=== PATIENT | female | born 1990 | race Caucasian/White ===

== ENCOUNTER 2018-08-25 09:17 | Day surgery (SDC) | payer OTHER ==
[~2018-08-25] VITALS: Ht 154.9 cm; Wt 78.8 kg
[2018-08-25] VITALS (15 sets, daily range): BP systolic 111–142; BP diastolic 75–91; PULSE 70–90; RESP 12–20; Ht 154.9 cm; Wt 78.8 kg
[~2018-08-25 09:17] MED LIST: MOTRIN; TRAM50TA2 PO
--- NOTE | 2018-08-25 11:54 | PREAC ---
Date/Time of Note Date/Time of Note DATE: 08/25/18 TIME: 11:53 Anesthesia Eval and Record Evaluation Time Pre-Procedure Interview DATE: 08/25/18 TIME: 11:53 Age 28 Sex female NPO: 8 hrs Preoperative diagnosis Voluntary sterilization Planned procedure BTL Past Medical History Past Medical History: None Surgery & Anesthesia Issues No known issue Meds Anticoagulation: No Beta Dhruv within 24 hr: No Reason Beta Dhruv not given: Pt. not on B-Dhruv Discontinued Reported Medications [Motrin] No Conflict Check 09/11/12 Discontinued Scripts Tramadol HCl (Tramadol HCl) 50 Mg Tab, 50 MG PO Q4 PRN for PAIN, #20 TAB Prov:GLORIA COUCH C 12/12/14 Meds reviewed: Yes Allergies Coded Allergies: No Known Allergy (Verified , 08/25/18) Allergies Reviewed: Yes Labs/Studies Labs Reviewed: Reviewed by anesthesiologist Result Diagram: 08/25/18 1003 Laboratory Tests 08/25/18 10:03 Blood Bank Test 08/25/18 10:03 Antibody Screen NEGATIVE Blood Type O NEGATIVE test: Negative Pre-procedure Exam Last vitals Vital Signs Date Temp Pulse Resp B/P (MAP) Pulse Ox O2 O2 Flow FiO2 Time Delivery Rate 08/25/18 97.5 16 136/90 99 Room Air 10:26 (105) Airway: Adequate mouth opening Mallampati: Mallampati II Teeth: Normal Lung: Normal Heart: Normal ASA Physical Status ASA physical status: 1 Emergency: None Planned Anesthetic General/MAC: ETT Planned Pain Management Parenteral pain med Pre-operative Attestations Prior to commencing anesthesia and surgery, the patient was re-evaluated, there was verification of: *The patient's identity *The results of appropriate recent lab work and preoperative vital signs *The above evaluation not changing prior to induction *Anesthetic plan, risk benefits, alternative and complications discussed with patient/family; questions answered; patient/family understands, accepts and wishes to proceed. VICENTA MICHEL MD Aug 25, 2018 11:54
[2018-08-25] MEDS ORDERED: PROPOFOL 20 ML ONE (12:20)
[2018-08-25] MEDS ORDERED: SUCCINYLCHOLINE CHLORIDE 100 MG/5 ML SYG IV ONE (12:20)
[2018-08-25] MEDS ORDERED: ROCURONIUM 50 MG INJ ONE (12:20)
[2018-08-25] MEDS ORDERED: GLYCOPYRROLATE 0.4 MG INJ ONE ×2 (12:20→13:02)
[2018-08-25] MEDS ORDERED: LIDOCAINE 2% (SDV) 5 ML INJ ONE (12:20)
[2018-08-25] MEDS ORDERED: NEOSTIGMINE 3 MG/3 ML SYRINGE ONE ×2 (12:20→13:02)
[2018-08-25] MEDS ORDERED: MEPERIDINE 100 MG INJ ONE (12:21)
[2018-08-25] MEDS ORDERED: EPHEDrine SULFATE 50 MG/5 ML SYG IV PRN (13:00)
[2018-08-25] MEDS ORDERED: MIDAZOLAM 1 MG/ML 2 ML INJ IV PRN (13:00)
[2018-08-25] MEDS ORDERED: LABETALOL HCL 20MG INJ IV PRN (13:00)
[2018-08-25] MEDS ORDERED: METOCLOPRAMIDE 10 MG INJ IV PRN (13:00)
[2018-08-25] MEDS ORDERED: FENTAnyl 50 MCG/ML VIAL IV PRN ×2 (13:00)
[2018-08-25] MEDS ORDERED: DIPHENHYDRAMINE 50 MG INJ IV PRN (13:00)
[2018-08-25] MEDS ORDERED: MEPERIDINE 25 MG INJ IV PRN (13:00)
[2018-08-25] MEDS ORDERED: hydrALAzine 20 MG INJ IV PRN (13:00)
[2018-08-25] MEDS ORDERED: HYDROmorphONE 1 MG/5 ML IV SYRINGE IV PRN ×3 (13:00)
[2018-08-25] MEDS ORDERED: OXYCODONE/ACETAMINOPHEN (5/325) TAB PO PRN ×2 (13:00)
[2018-08-25] MEDS ORDERED: ONDANSETRON 4 MG INJ IV PRN ×2 (13:00→14:00)
[2018-08-25] MEDS ORDERED: CEFAZOLIN 1 GM INJ ONE (13:02)
[2018-08-25] MEDS ORDERED: ONDANSETRON 4 MG INJ ONE (13:02)
[2018-08-25] MEDS ORDERED: METOCLOPRAMIDE 10 MG INJ ONE (13:02)
[2018-08-25] MEDS ORDERED: BUPIVACAINE 0.5%/EPI (SDV) 30 ML INJ ONE (13:23)
--- NOTE | 2018-08-25 13:43 | SIPON ---
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
[2018-08-25] MEDS ORDERED: NALOXONE (0.4 MG/ML) INJ ONE (13:50)
[2018-08-25] MEDS ORDERED: KETOROLAC 30 MG INJ IV PRN (14:00)
[2018-08-25] MEDS ORDERED: HYDROCODONE/APAP (5/325) TAB PO PRN ×2 (14:00)
[2018-08-25] MEDS ORDERED: morphine 2 MG INJ IV PRN (14:00)
[2018-08-25] MEDS: FENTAnyl 50 MCG/ML VIAL IV PRN ×2 (14:17→14:29)
--- NOTE | 2018-08-25 14:59 | PAC ---
Date/Time of Note Date/Time of Note DATE: 08/25/18 TIME: 14:59 Post-Anesthesia Notes Post-Anesthesia Note Last documented vital signs Vital Signs Date Temp Pulse Resp B/P (MAP) Pulse Ox O2 O2 Flow FiO2 Time Delivery Rate 08/25/18 74 14 127/82 94 Room Air 14:30 (97) 08/25/18 98.8 14:06 08/25/18 8.0 14:05 Activity: WNL Respiratory function: WNL Cardiovascular function: WNL Mental status: Baseline Pain reasonably controlled: Yes Hydration appropriate: Yes Nausea/Vomiting absent: Yes Comments BT: 98.7 VICENTA MICHEL MD Aug 25, 2018 14:59
--- NOTE | 2018-08-25 15:05 | PREOPHP ---
DATE OF ADMISSION: 08/25/2018 HISTORY OF PRESENT ILLNESS: A 28-year-old female 3, para 2, AB 1, last menstrual period of 0 08/20/2018 is admitted for voluntary sterilization. PAST MEDICAL HISTORY: Unremarkable. PAST SURGICAL HISTORY: Cholecystectomy and abdominoplasty. ALLERGIES: NO KNOWN ALLERGIES. FAMILY HISTORY: Hypertension and diabetes. PHYSICAL EXAMINATION: VITAL SIGNS: The patient is afebrile. Vital signs are stable. HEAD, NECK AND CHEST: Within normal limits. ABDOMEN: Soft, nontender, nondistended. PELVIC: Normal. EXTREMITIES: Within normal limits. NEUROLOGIC: Within normal limits. IMPRESSION: Voluntary sterilization. PLAN: Minilaparotomy, bilateral tubal ligation. Risks, benefits and alternatives of procedure were explained to patient. The patient has been counseled about all of her contraceptive options includin g all methods of sterilization. It was explained to patient that with bilateral tubal ligation, ther e is a chance of failure resulting in ectopic and/or . After counseling, the ochoa ent said she understood and gave informed consent for the procedures. Dictated By: RENETTA RIOJAS/RUDY Conf#: [id number] DID#: [id number]
--- NOTE | 2018-08-25 16:34 | OPR ---
DATE OF OPERATION: 08/25/2018 PREOPERATIVE DIAGNOSIS: Voluntary sterilization. POSTOPERATIVE DIAGNOSIS: Voluntary sterilization. OPERATION PERFORMED: Minilaparotomy, bilateral tubal ligation. SURGEON: Renetta Lizarraga MD LEARNING MANAGER: waste minimization technician. ANESTHESIA: General. ANESTHESIOLOGIST: Dr. Bob. PROCEDURE: The patient was taken to the operating room, placed on the operating table in supine position. After adequate general anesthesia was given, the area was prepared and draped in the usual sterile fashion. Using a scalpel, Pfannenstiel incision was made about 2 fingerbreadths above the symphysis pubis. The incision was carried down to the fascia. The fascia was incised and extended bilaterally with Bovie. Two Kamran's were used to separate the fascia from the muscle. The muscle was dissected down to the peritoneum. The peritoneum was secured with 2 Kellys and incised with Metzenbaum scissors. Further, the peritoneal cavity, the right fallopian tube was grasped with a [place] clamp, followed to its fimbrial end to confirm its identity. Using 0 plain suture ligature, a 5 cm segment of the right fallopian tube was doubly ligated. Using Metzenbaum scissors, a portion of the right fallopian tube above the ligated area was excised and sent to pathology. Same procedure was repeated on left fallopian tube. After assuring hemostasis, the peritoneum was closed with 0 chromic continuous. Fascia was closed with 0 Vicryl continuous. Subcutaneous tissue was reapproximated with 2-0 plain. Skin was closed with karyn. ESTIMATED BLOOD LOSS: Minimal. COUNTS: All counts were correct. Dictated By: RENETTA RIOJAS/RUDY Conf#: [id number] DID#: [id number] ELMO
== END 2018-08-25 16:25 | disposition home or self-care (01) ==
LOC: SDS 09:17
PROVIDERS: ATTEND Obstetrics & Gynecology
DX: Z30.2 Encounter for sterilization (principal)
CPT/HCPCS: 58600; 85025; 86850; 86900; 86901; 88302; J0690; J1170; J2175; J2405; J2765; J3010; Z7512; Z7610; J2310; J2710